=== PATIENT | male | born 1945 | race Hispanic/Latino ===

== ENCOUNTER 2019-06-27 13:52 | Outpatient (CLI) | payer MEDICARE ==
--- NOTE | 2019-06-27 14:39 | XRay Report ---
CHEST 2 VIEWS INDICATION / CLINICAL INFORMATION: COUGH. COMPARISON: None available. FINDINGS: SUPPORT DEVICES: None. HEART / MEDIASTINUM: No significant abnormality. LUNGS / PLEURA: There is minimal patchy airspace opacity in the left lower lung zone .No pneumothorax . ADDITIONAL FINDINGS: No significant additional findings. IMPRESSION: 1. Minimal patchy airspace opacity in the left lower lung zone could represent atelectasis or an evol ving pneumonia. Follow-up chest radiographs are recommended as the next several weeks to ensure clear ing. Signer Name: Herminio Mcneil MD Signed: 06/27/2019 2:34 PM Workstation Name: [id number]
== END 2019-06-27 13:53 | disposition home or self-care (01) ==
LOC: SPVIMAG 13:52
PROVIDERS: ATTEND Internal Medicine
DX: R05 Cough (principal)
CPT/HCPCS: 71046

== ENCOUNTER 2019-07-10 15:12 | Outpatient (CLI) | payer MEDICARE ==
--- NOTE | 2019-07-10 15:51 | XRay Report ---
CHEST 2 VIEWS INDICATION: PNEUMONIA. COMPARISON: 06/27/19 FINDINGS: Support devices: None. Heart: Within normal limits. Lungs/pleura: No acute air space or interstitial disease. No pneumothorax. Previously described subt le left lung opacity has resolved. Additional findings: None. IMPRESSION: Unremarkable chest films. Signer Name: Matthew Ibarra Jr, MD Signed: 07/10/2019 3:47 PM Workstation Name: [id number]
== END 2019-07-10 15:13 | disposition home or self-care (01) ==
LOC: SPVIMAG 15:12
PROVIDERS: ATTEND Internal Medicine
DX: R91.8 Other nonspecific abnormal finding of lung field (principal)
CPT/HCPCS: 71046